=== PATIENT | female | born 1980 | race Caucasian/White ===

== ENCOUNTER 2020-11-17 06:10 | Emergency (ER) | payer OTHER ==
[~2020-11-17 06:10] MED LIST: ATARAX25 MG PO; BUSPAR5 MG PO; CYCLOBENZAPRINE10 MG PO; IBUPROFEN800 MG PO; LAMICTAL100 MG PO; LATUDA20 MG PO; LITHIUM300 MG PO; MEDROL 4MG DOSEP4 MG PO; METRONIDAZOLE500 MG PO; PERCOCET 5-3251 EACH PO; PROZAC20 MG PO; VALACYCLOVIR500 MG PO; VIBRAMYCIN100 MG PO; ZOFRAN4 MG SL
[2020-11-17] MEDS ORDERED: IBUPROFEN800 MG PO (07:17)
[2020-11-17] MEDS ORDERED: NORCO 5-325 TA1 EACH PO ×2 (07:17→07:19)
== END 2020-11-17 08:00 | disposition home or self-care (01) ==
LOC: FER 06:10
DX: S93.422A Sprain of deltoid ligament of left ankle, initial encounter (principal); F17.210 Nicotine dependence, cigarettes, uncomplicated; Z88.5 Allergy status to narcotic agent; Z88.0 Allergy status to penicillin; X50.1XXA Overexertion from prolonged static or awkward postures, initial encounter; Y92.009 Unspecified place in unspecified non-institutional (private) residence as the place of occurrence of the external cause
CPT/HCPCS: 73610; 73630; 96372; J1170; J1885

== ENCOUNTER 2021-02-20 23:37 | Emergency (ER) | payer OTHER ==
[~2021-02-20 23:37] MED LIST changes: +NORCO 5-325 TA1 EACH PO
[2021-02-21 00:12] LABS: BASOPHIL 0.5 % (0-2); EOSINOPHIL 1.3 % (0-5); HCT 46.1 % (37.0-47.0); HGB 15.2 g/dl (12.5-16.0); LYMPHOCYTE 35.4 % (15-48); MCH 29.9 pg (25.0-31.0); MCV 90.6 fL (78.0-100.0); MPV 9.6 fL (6.0-9.5); NEUTROPHIL 56.5 % (41-80); NRBC 0; PLT 260 K/uL (150-400); RBC 5.09 M/uL (4.20-5.40); RDW 12.5 % (11.5-14.0); WBC 9.9 K/uL (4.0-10.5)
[2021-02-21 00:33] LABS: ALBUMIN 3.4 g/dL (3.4-5.0); BILIRUBIN - TOTAL 0.3 mg/dL (0.2-1.0); BUN/CREAT RATIO (CALC) 15.4 RATIO; CREATININE 0.65 mg/dL (0.51-0.95); GLOBULIN (CALCULATION) 4.4 g/dL; POTASSIUM 3.8 mmol/L (3.5-5.1); TOTAL PROTEIN 7.8 g/dL (6.4-8.2)
[2021-02-21 00:47] LABS: CORONAVIRUS 2019 SARS-COV-2 NEGATIVE (NEGATIVE); INFLUENZA A NAA NEGATIVE (NEGATIVE)
[2021-02-21 01:22] LABS: INR 1.01 (0.9-1.2); PROTHROMBIN TIME 12.7 SECONDS (11.8-13.4)
[2021-02-21] MEDS ORDERED: VENTOLIN HFA IN18 GM INH (06:41)
[2021-02-21] MEDS ORDERED: ZPAK PO (06:41)
[2021-02-21] MEDS ORDERED: MEDROL 4MG DOSEP4 MG PO (06:41)
[2021-02-21] MEDS ORDERED: NORCO 5-325 TA1 EACH PO (06:41)
== END 2021-02-21 06:53 | disposition home or self-care (01) ==
LOC: FER 23:37
PROVIDERS: Emergency Medicine Emergency Medical Services
DX: R07.89 Other chest pain (principal); R06.02 Shortness of breath; R00.0 Tachycardia, unspecified; F31.9 Bipolar disorder, unspecified; F17.210 Nicotine dependence, cigarettes, uncomplicated; Z20.822 Contact with and (suspected) exposure to COVID-19; Z98.890 Other specified postprocedural states; Z88.0 Allergy status to penicillin; Z88.5 Allergy status to narcotic agent; Z79.899 Other long term (current) drug therapy; Z79.3 Long term (current) use of hormonal contraceptives
CPT/HCPCS: 36415; 71045; 71275; 80053; 83605; 84484; 85025; 85379; 85610; 85730; 87040; 93005; 94640; 94664; J7030; Q9967; U0002

== ENCOUNTER 2022-02-07 10:36 | Emergency (ER) | payer OTHER ==
[~2022-02-07 10:36] MED LIST changes: +VENTOLIN HFA IN18 GM INH; +ZPAK PO
[2022-02-07] MEDS ORDERED: NORCO 5-325 TA1 EACH PO (12:02)
== END 2022-02-07 12:22 | disposition home or self-care (01) ==
LOC: FER 10:36
DX: M23.92 Unspecified internal derangement of left knee (principal); M25.462 Effusion, left knee; I10 Essential (primary) hypertension; K21.9 Gastro-esophageal reflux disease without esophagitis; E66.9 Obesity, unspecified; Z88.0 Allergy status to penicillin; Z88.5 Allergy status to narcotic agent; Z79.899 Other long term (current) drug therapy; X50.1XXA Overexertion from prolonged static or awkward postures, initial encounter; Y92.009 Unspecified place in unspecified non-institutional (private) residence as the place of occurrence of the external cause
CPT/HCPCS: 99283